=== PATIENT | female | born 1970 | race Caucasian/White ===

== ENCOUNTER 2017-01-08 13:35 | Emergency (ER) | payer OTHER ==
[2017-01-08 13:51] VITALS: BP 148/82; PULSE 77; RESP 20; TEMP 98.7
--- NOTE | 2017-01-08 14:27 | ED ---
General Adult HPI - General Chief complaint: ENT Stated complaint: feels like something caught in throat Time Seen by Provider: 01/08/17 13:50 Source: patient, RN notes reviewed Mode of arrival: ambulatory Limitations: no limitations - History of Present Illness Initial comments: Is a 46-year-old female presents to the emergency department stating that on Tuesday she had taken some fiber pills negative stuck in her throat and then she was eating some bread net felt like it got stuck as well. Patient states there are times she something he feels like it stuck in her throat however she has never vomited anything back up. Patient states she ate scrambled eggs and ice cream and has been able to drink without having it get stuck. Patient states currently she is not having any symptoms right now but she refuses to eat so she 's wondering if someone can scope her. I told her that no one will come in emergently unless something is stuck by offered to have her try something in the ER to eat and we could assess her as she eats it and after she eats. Patient refused to eat anything in the ER she stated that she would just as soon wait to see her primary medical care doctor on Tuesday. Patient denies any other symptoms at this time. Patient denies chest pain difficulty breathing or shortness of breath per patient denies headache patient denies numbness weakness. Patient denies lightheadedness dizziness or nursing blood cell. Patient denies any recent fever chills cough. Patient denies abdominal pain. - Related Data Home Medications Medication Instructions Recorded Confirmed Doxycycline Monohydrate [Monodox] 100 mg PO DAILY 01/08/17 01/08/17 Hydrochlorothiazide [Hydrodiuril] 25 mg PO DAILY PRN 01/08/17 01/08/17 Loratadine [Claritin] 10 mg PO DAILY 01/08/17 01/08/17 Montelukast [Singulair] 10 mg PO DAILY 01/08/17 01/08/17 Allergies Allergy/AdvReac Type Severity Reaction Status Date / Time No Known Allergies Allergy Verified 01/08/17 14:08 Review of Systems ROS Statement: Those systems with pertinent positive or pertinent negative responses have been documented in the HPI. ROS Other: All systems not noted in ROS Statement are negative. Past Medical History Past Medical History: Asthma History of Any Multi-Drug Resistant Organisms: None Reported Past Surgical History: No Surgical Hx Reported Past Psychological History: Anxiety, Depression Smoking Status: Never smoker Past Alcohol Use History: None Reported Past Drug Use History: None Reported General Exam - General Exam Comments Initial Comments: GENERAL: Patient is well-developed and well-nourished. Patient is nontoxic and well- hydrated and is in no acute distress. ENT: Neck is soft and supple. No significant lymphadenopathy is noted. Oropharynx is clear. Moist mucous membranes. Neck has full range of motion without eliciting any pain. There is no thyroid enlargement and no masses were felt. EYES: The sclera were anicteric and conjunctiva were pink and moist. Extraocular movements were intact and pupils were equal round and reactive to light. Eyelids were unremarkable. PULMONARY: Unlabored respirations. ABDOMEN: Soft and nontender with normal bowel sounds. No palpable organomegaly was noted. There is no palpable pulsatile mass. SKIN: Skin is clear with no lesions or rashes and otherwise unremarkable. NEUROLOGIC: Patient is alert and oriented x3. Cranial nerves II through XII are grossly intact. Motor and sensory are also intact. Normal speech, volume and content. Symmetrical smile. MUSCULOSKELETAL: Normal extremities with adequate strength and full range of motion. LYMPHATICS: No significant lymphadenopathy is noted PSYCHIATRIC: Normal psychiatric evaluation. Limitations: no limitations Course Vital Signs 01/08/17 13:48 Temperature 98.7 F Pulse Rate 77 Respiratory 20 Rate Blood Pressure 148/82 O2 Sat by Pulse 99 Oximetry Disposition Clinical Impression: Dysphagia Disposition: HOME SELF-CARE Condition: Good Instructions: Dysphagia (ED) Referrals: None,Stated [Primary Care Provider] - 1-2 days Time of Disposition: 14:26
== END 2017-01-08 14:40 | disposition home or self-care (01) ==
LOC: EC 13:35
DX: R13.10 Dysphagia, unspecified (principal); J45.909 Unspecified asthma, uncomplicated; Z79.899 Other long term (current) drug therapy
CPT/HCPCS: 99283

== ENCOUNTER 2021-09-30 14:08 | Emergency (ER) | payer OTHER ==
[2021-09-30 14:34] VITALS: BP 137/81; PULSE 87; RESP 20; TEMP 98.7
--- NOTE | 2021-09-30 17:03 | ED ---
ENT HPI - General Chief complaint: ENT Stated complaint: food in throat Time Seen by Provider: 09/30/21 16:04 Source: patient, RN notes reviewed Mode of arrival: ambulatory Limitations: no limitations - History of Present Illness Initial comments: Patient is a 51-year-old female presenting to the emergency department with concerns of possible food stuck in her throat. She states this happened about a week and a half ago, she felt like she could not get food down all the way. Patient was evaluated [facility], they recommended coming here for a scope. Patient was supposed to follow-up with endo-last week however she did not. Patient presents today after she ate some eggs this morning and feels like they're stuck. She is able to tolerate liquids. His had no vomiting. She denies any abdominal pain, no chest pain or shortness of breath. She has no fevers or chills, no upper respiratory symptoms. She is recovering f rom a sinus infection, she'll she does have some mild congestion. Patient has no other complaints today. Her vital signs are stable upon arrival. - Related Data Home Medications Medication Instructions Recorded Confirmed Doxycycline Monohydrate [Monodox] 100 mg PO DAILY 01/08/17 01/08/17 Loratadine [Claritin] 10 mg PO DAILY 01/08/17 01/08/17 Montelukast [Singulair] 10 mg PO DAILY 01/08/17 01/08/17 hydroCHLOROthiazide [Hydrodiuril] 25 mg PO DAILY PRN 01/08/17 01/08/17 Previous Rx's Medication Instructions Recorded Metoclopramide [Reglan] 10 mg PO BID #10 tab 09/30/21 Allergies Allergy/AdvReac Type Severity Reaction Status Date / Time No Known Allergies Allergy Verified 09/30/21 14:31 Review of Systems ROS Statement: Those systems with pertinent positive or pertinent negative responses have been documented in the HPI. ROS Other: All systems not noted in ROS Statement are negative. Past Medical History Past Medical History: Asthma History of Any Multi-Drug Resistant Organisms: None Reported Past Surgical History: No Surgical Hx Reported Past Psychological History: Anxiety, Depression Smoking Status: Never smoker Past Alcohol Use History: None Reported Past Drug Use History: None Reported General Exam - General Exam Comments Initial Comments: GENERAL: Patient is well-developed and well-nourished. Patient is nontoxic and in no acute distress. HEAD: Atraumatic, normocephalic. EYES: Pupils equal round and reactive to light, extraocular movements intact, sclera anicteric, conjunctiva are normal. Eyelids were unremarkable. ENT: Oropharynx clear without exudates. Moist mucous membranes. NECK: Normal range of motion, supple without lymphadenopathy or JVD. LUNGS: Unlabored respirations. Breath sounds clear to auscultation bilaterally and equal. No wheezes rales or rhonchi. HEART: Regular rate and rhythm without murmurs, rubs or gallops. ABDOMEN: Soft, nontender, normoactive bowel sounds. No guarding, no rebound. No masses appreciated. NEUROLOGICAL: Patient is alert and oriented x 3. Normal speech, normal gait. PSYCH: Normal mood, normal affect. SKIN: Warm, Dry, normal turgor, no rashes or lesions noted. Limitations: no limitations Course Vital Signs 09/30/21 14:32 Temperature 98.7 F Pulse Rate 87 Respiratory 20 Rate Blood Pressure 137/81 O2 Sat by Pulse 97 Oximetry Medical Decision Making - Medical Decision Making Patient is a 51-year-old female here with complaint of possible food stuck in her throat over the past 2 weeks. She was evaluated at [facility] last week, was told to follow-up with endo-or come here for further evaluation. Patient is in no acute distress, she did have a chest x-ray at [facility] and there was no complicating factors seen. I discussed with her that we do not have GI coverage here for the week. Also she is tolerating oral fluids, she's had no vomiting. I recommended following up with them as an outpatient. She is agreeable to this. She stable for discharge. Disposition Clinical Impression: Foreign body sensation in throat Disposition: HOME SELF-CARE Condition: Stable Instructions (If sedation given, give patient instructions): Esophageal Foreign Body (ED) Additional Instructions: Please return to the Emergency Department if symptoms worsen or any other concerns. Trial of Reglan to help with symptoms. May crush up tablet in food Also recommend a carbonated beverages. Follow up with GI as discussed. Prescriptions: Metoclopramide [Reglan] 10 mg PO BID #10 tab Is patient prescribed a controlled substance at d/c from ED?: No Referrals: Keenan Rothman MD [Primary Care Provider] - 1-2 days Sandra Gonsales MD [STAFF PHYSICIAN] - 1-2 days Time of Disposition: 17:03
== END 2021-09-30 17:09 | disposition home or self-care (01) ==
LOC: EC 14:08
DX: T17.228A Food in pharynx causing other injury, initial encounter (principal); J45.909 Unspecified asthma, uncomplicated; Z79.51 Long term (current) use of inhaled steroids; W45.8XXA Other foreign body or object entering through skin, initial encounter
CPT/HCPCS: 99283

== ENCOUNTER → 2022-03-04 | Day surgery (SDC) | payer OTHER ==
[2022-02-26 15:18] VITALS: BMI 21.0
[2022-03-04 13:55] VITALS: BP 155/76; PULSE 64; RESP 16; TEMP 97.6
--- NOTE | 2022-03-10 20:10 | PCN ---
PROCEDURE NOTE DATE OF DICTATION: 03/10/2022 BRIEF HISTORY: The patient is a 51-year-old white female scheduled for esophageal manometry as a part of evaluation of dysphagia. PROCEDURE PERFORMED: High-resolution impedance esophageal manometry. PREOPERATIVE DIAGNOSIS: Dysphagia. PROCEDURE DESCRIPTION: After informed consent was obtained from the patient, she was brought into the endoscopy unit. The procedure was performed by endoscopy nurse Beckie Corado. The esophageal manometry catheter was passed from the external nostril and was gently advanced into the esophagus and stomach, and the study was performed using liquid and viscous swallows. Using [place] classification, the study results are interpreted as follows: 1. Lower esophageal sphincter data: Mean IRP 12 mmHg. 2. Lower esophageal sphincter data: DCI is normal. Peristaltic contractions were 80%. Complete bolus transit with liquids 90%. Complete viscous transit 70%. Peristaltic contractions were 80%. No evidence of simultaneous or spontaneous contractions. INTERPRETATION: The above esophageal manometry study is within normal limits. There is no evidence of esophageal dysmotility. MMODL / IJN: [id number] /
== END ==
LOC: ORWHC2ENDO 13:38
PROVIDERS: ATTEND Internal Medicine Gastroenterology
DX: R13.10 Dysphagia, unspecified (principal); E78.5 Hyperlipidemia, unspecified; J45.909 Unspecified asthma, uncomplicated; F41.9 Anxiety disorder, unspecified; F32.A Depression, unspecified; Z79.899 Other long term (current) drug therapy; Z98.890 Other specified postprocedural states
CPT/HCPCS: 91010